=== PATIENT | male | born 1985 | race Caucasian/White ===

== ENCOUNTER 2018-06-25 09:59 | Emergency (ER) | payer MEDICAID ==
[~2018-06-25] VITALS: Ht 170.2 cm; Wt 74.8 kg
[2018-06-25 10:03] VITALS: BP 122/74
[2018-06-25] MEDS ORDERED: NKM (10:07)
--- NOTE | 2018-06-25 10:26 | Emergency Room Report ---
History of Present Illness General Chief Complaint: Flu Like Symptoms Source: Patient Present Illness HPI Patient presents with 2 days of upper respiratory illness. He has nasal congestion, cough, chest pain. He is producing yellow and green phlegm. States he can't smell or taste food. There is no blood. He does not hear himself wheezing. Denies a history of asthma. He took ibuprofen yesterday. No NVD, dysuria. No rashes or significant headache. The patient's a resident at [facility]. There for alcohol abuse. Allergies: Coded Allergies: No Known Allergies (Unverified , 06/25/18) Patient History Social History: Reports: alcohol use; Denies: smoking Social History Narrative in Rehab Reviewed Nursing Documentation: PMH: Agreed; PSxH: Agreed Nursing Documentation-PMH Past Medical History: No Stated History Review of Systems All Other Systems: negative except mentioned in HPI Physical Exam Vital Signs Date Time Temp Pulse Resp B/P (MAP) Pulse Ox O2 Delivery O2 Flow Rate FiO2 06/25/18 10:03 97.0 102 18 122/74 95 Room Air 97.0 Sp02 EP Interpretation: reviewed, normal General Appearance: well appearing, no apparent distress, GCS 15 Head: normocephalic, atraumatic Eyes: bilateral eye normal inspection, bilateral eye PERRL ENT: hearing grossly normal, normal voice, moist mucus membranes, pharyngeal erythema, other - nasal congestion Neck: full range of motion, supple Respiratory: no respiratory distress, speaking full sentences Cardiovascular #1: regular rate, rhythm Cardiovascular #2: 2+ radial (R) Gastrointestinal: normal inspection, normal bowel sounds Musculoskeletal: no calf tenderness Neurologic: alert, oriented x3, normal gait, grossly normal Psychiatric: mood/affect normal Skin: no rash Medical Decision Making Diagnostic Impression: Primary Impression: URI (upper respiratory infection) Qualified Codes: J06.9 - Acute upper respiratory infection, unspecified ER Course Patient presents with upper respiratory symptoms. Based on his pharyngeal exam this looks viral. Other possibility is bacterial. There is no wheezing at this time. Not toxic. Given Afrin and ibuprofen here. Treatment will be symptomatic. Improved with treatment. Patient stable for outpatient observation and treatment. Last Vital Signs Date Time Temp Pulse Resp B/P (MAP) Pulse Ox O2 Delivery O2 Flow Rate FiO2 06/25/18 11:08 [id number] 18 122/74 95 Room Air 206.6 06/25/18 10:07 102 Patient is afebrile. Status: improved Disposition: HOME, SELF-CARE Condition: Improved Scripts Ibuprofen* (MOTRIN*) 600 Mg Tablet 600 MG ORAL Q6H PRN for For Pain, #10 TAB Prov: Wilbur Gonzalez M.D. 06/25/18 Acetaminophen (Tylenol) 325 Mg Tablet 650 MG ORAL Q6H PRN for Prn Pain/Headache/Temp > 101, #10 TAB 0 Refills Prov: Wilbur Gonzalez M.D. 06/25/18 Chlorpheniramine Maleate (CHLOR-TRIMETON) 4 Mg Tablet 4 MG PO Q6HR PRN for congestion, #10 TAB Prov: Wilbur Gonzalez M.D. 06/25/18 Guaifenesin/Dextromethorphan (Guaifenesin Dm Syrup) 5 Ml Syrup 1 TSP ORAL Q8H, #90 ML 0 Refills Prov: Wilbur Gonzalez M.D. 06/25/18 Referrals: NOT CHOSEN ANNIE/,REFERRING (PCP) Wilbur Gonzalez M.D. Jun 25, 2018 10:26
[2018-06-25] MEDS ORDERED: Oxymetazoline 0.05% Na Spray 30ml NASAL ONE (10:30)
[2018-06-25] MEDS ORDERED: CHLOR-TRIMETON4 MG PO (10:54)
[2018-06-25] MEDS ORDERED: TYLENOL325 MG ORAL (10:54)
[2018-06-25] MEDS ORDERED: GUAIFENESIN DM118 M1 ORAL (10:54)
[2018-06-25] MEDS ORDERED: IBUPROFEN600 MG ORAL (10:54)
[2018-06-25 11:08] VITALS: BP 122/74
== END 2018-06-25 11:09 | disposition home or self-care (01) ==
LOC: EMR 10:22
DX: J06.9 Acute upper respiratory infection, unspecified (principal)
CPT/HCPCS: 99283